=== PATIENT | female | born 1985 | race Caucasian/White ===

== ENCOUNTER 2021-11-09 15:19 | Inpatient (IN) | payer OTHER ==
[~2021-11-09] VITALS: Ht 172.7 cm; Wt 60.3 kg
[2021-11-09 16:12] LABS: HEMOGLOBIN 13.1 gm/dl (12.3-15.3); RED BLOOD COUNT 4.97 M/UL (4.00-5.10); WHITE BLOOD COUNT 12.2 K/UL (4.5-11.0)
[2021-11-09 16:41] LABS: BUN/CREATININE RATIO 23 (0-10)
[2021-11-10 07:20] LABS: HEMOGLOBIN 9.4 gm/dl (12.3-15.3); RED BLOOD COUNT 3.69 M/UL (4.00-5.10)
[2021-11-10 07:31] LABS: BUN/CREATININE RATIO 15 (0-10)
[2021-11-10 15:09] LABS: HEMOGLOBIN 9.6 gm/dl (12.3-15.3)
[2021-11-11 04:04] LABS: HEMOGLOBIN 9.9 gm/dl (12.3-15.3); RED BLOOD COUNT 3.86 M/UL (4.00-5.10); WHITE BLOOD COUNT 8.1 K/UL (4.5-11.0)
[2021-11-11 04:45] LABS: BUN/CREATININE RATIO 17 (0-10)
[2021-11-12 06:25] LABS: HEMOGLOBIN 10.8 gm/dl (12.3-15.3); RED BLOOD COUNT 4.18 M/UL (4.00-5.10); WHITE BLOOD COUNT 6.7 K/UL (4.5-11.0)
[2021-11-12 06:59] LABS: BUN/CREATININE RATIO 16 (0-10)
[2021-11-13 06:16] LABS: RED BLOOD COUNT 3.98 M/UL (4.00-5.10); WHITE BLOOD COUNT 5.8 K/UL (4.5-11.0)
[2021-11-13 06:20] LABS: BUN/CREATININE RATIO 12 (0-10)
[2021-11-13] MEDS ORDERED: BACTRIM DS TAB1 EACH PO (09:12)
[2021-11-13] MEDS ORDERED: K-TAB ER10 MEQ PO (09:12)
[2021-11-13] MEDS ORDERED: FERROUS GLUCON324 M1 PO (09:12)
[2021-11-13] MEDS ORDERED: DOCUSATE SODIU100 MG PO (09:12)
[2021-11-13] MEDS ORDERED: DEX4 GLUCOSE4 GM PO (09:15)
--- NOTE | 2021-11-13 17:33 | NUR ---
having difficulty with patient iv site-positional. restarted another one earlier and refused to restart another one. will continue to monitor and administer iv fluids and antibiotics as ordered
--- NOTE | 2021-11-13 17:39 | NUR ---
informed dr. vincent of patient mri result posted, and difficulty of iv site and bolus still infusing, dr. vincent acknowledged and will check mri result and will call of if there is new order
[2021-11-14 05:33] LABS: RED BLOOD COUNT 3.95 M/UL (4.00-5.10); WHITE BLOOD COUNT 5.3 K/UL (4.5-11.0)
[2021-11-14 05:45] LABS: BUN/CREATININE RATIO 14 (0-10)
--- NOTE | 2021-11-14 08:58 | NUR ---
IV site positional, started new IV
[2021-11-15 04:05] LABS: HEMOGLOBIN 10.5 gm/dl (12.3-15.3); RED BLOOD COUNT 4.1 M/UL (4.00-5.10)
[2021-11-15 04:07] LABS: WHITE BLOOD COUNT 6.7 K/UL (4.5-11.0)
[2021-11-15 04:26] LABS: BUN/CREATININE RATIO 22 (0-10)
[2021-11-15] MEDS ORDERED: HYDROCODON-ACE1 EAC4 PO (10:28)
[2021-11-15] MEDS ORDERED: BACTRIM DS TAB1 EACH PO ×2 (10:37→10:51)
[2021-11-15] MEDS ORDERED: IBUPROFEN600 MG PO (10:50)
[2021-11-15] MEDS ORDERED: TYLENOL 8 HOUR650 MG PO (10:50)
== END 2021-11-15 13:39 | disposition home or self-care (01) | DRG 854 ==
LOC: ER1 15:19 → M/S 18:45 → CDU 18:45 → M/S 20:14
PROVIDERS: Internal Medicine; Nurse Practitioner; Orthopaedic Surgery; Physician Assistant; ADMIT Internal Medicine
PROC: 0R9U0ZZ Drainage of Right Metacarpophalangeal Joint, Open Approach (ICD-10-PCS; principal; 2021-11-14 13:30)
PROC: 0RBV0ZZ Excision of Left Metacarpophalangeal Joint, Open Approach (ICD-10-PCS; principal; 2021-11-14 13:30)
DX: A41.02 Sepsis due to Methicillin resistant Staphylococcus aureus (principal); L02.511 Cutaneous abscess of right hand; L03.113 Cellulitis of right upper limb; B19.10 Unspecified viral hepatitis B without hepatic coma; M00.041 Staphylococcal arthritis, right hand; Z20.822 Contact with and (suspected) exposure to COVID-19; M65.841 Other synovitis and tenosynovitis, right hand; B19.20 Unspecified viral hepatitis C without hepatic coma; Z89.111 Acquired absence of right hand; D50.9 Iron deficiency anemia, unspecified; D72.829 Elevated white blood cell count, unspecified; E87.6 Hypokalemia; F19.10 Other psychoactive substance abuse, uncomplicated; F17.210 Nicotine dependence, cigarettes, uncomplicated; F15.90 Other stimulant use, unspecified, uncomplicated; E16.2 Hypoglycemia, unspecified; Z82.5 Family history of asthma and other chronic lower respiratory diseases
CPT/HCPCS: 36415; 73130; 73200; 73220; 80048; 80202; 80307; 81001; 82728; 82962; 83540; 83550; 83605; 83735; 84702; 85014; 85018; 85025; 85027; 85652; 86140; 87040; 87070; 87086; 87205; 93005; 96374; 96375; 99284; A9577; J0696; J1100; J1170; J1650; J1885; J2001; J2250; J2270; J2405; J2543; J2704; J3010; J3370; J7030; J7040; J7050; J7070; J7120; U0002